=== PATIENT | male | born 1955 | race Caucasian/White ===

== ENCOUNTER → 2023-10-18 20:13 | Outpatient (CLI) | payer MEDICARE, OTHER, SELFPAY ==
--- OUTSIDE RECORDS SUMMARY | 2023-10-18 20:17 | XMS_ITS | Clinical Summary ---
Author Name Unknown Address [address] [place] [address] [place] [address] Phone Organization [facility] , [facility] Address [address] [place] [address] Phone Care Team Providers Care Silver Service Waiter Name Role Phone TWYLA THORNTON, FABRICIO Castro Unavailable [phone] Marquis THORNTON, Sotero Aden Unavailable Unavail able Reason for Visit and Chief Complaint BRACE FITTING Problems Includes: Problems addressed during this encounter and other active Problems All Visits Onset Date Resolved Date Provider Condition S tatus Pain in the Left Hand Only 03/21/2022 Maribell Schwartz APRN Active Plan of Treatment Future Appointments Date Time Location Provi luis NEW PROBLEM/EST PT 10/25/2023 10:15AM [facility] Jose Benavidez MD Assessments Includes: Assessments from this encounter No Assessments Recorded Medical Equipment - Implanted Devices Includes: Current Devices No Medical Equipment Recorded Medications Includes: Medications discussed during this encounter and other current Medications Current Medications (continue as prescribed) amLODIPine Benzoate 1 MG/ML Oral Suspension 05/02/2022 Provider: Diagnosis:
--- OUTSIDE RECORDS SUMMARY | 2023-10-18 20:17 | XMS_ITS | Clinical Summary ---
Author Name Unknown Address [address] [place] [address] [place] [address] Phone Organization [facility] , [facility] Address [address] [place] [address] Phone Care Team Providers Care Dispatcher Radio Name Role Phone TWYLA THORNTON, FABRICIO Castro Unavailable [phone] Marquis THORNTON, Sotero Aden Unavailable [phone] Reason for Visit and Chief Complaint The Chief Complaint is: left hand pain Problems Includes: Problems addressed during this encounter and other active Problems All Visits Onset Date Resolved Date Provider Condition S tatus Pain in the Left Hand Only 03/21/2022 Maribell Schwartz APRN Active Plan of Treatment Fall Risk Assessment: This patient has been identified as a fall risk. Balance/gait along with postural blood pressure, vision and home fall hazards have been assessed. Medications have been reviewed, and recommendations made with regard to contributing factors for future falls. Plan of care: Consideration of vitamin D supplementation along with balance and strength training with consideration for formal physical therapy has been discussed with the patient. - Last Documented On 11/30/2022 6:51PM ; [facility] Future Appointments Date Time Location Provi luis NEW PROBLEM/EST PT 10/25/2023 10:15AM [facility] Jose Benavidez MD Instructions to patient
--- OUTSIDE RECORDS SUMMARY | 2023-10-18 20:17 | XMS_ITS | Clinical Summary ---
Author Name Unknown Address [address] [place] [address] [place] [address] Phone Organization [facility] , [facility] Address [address] [place] [address] Phone Care Team Providers Care Blood Collector Name Role Phone TWYLA THORNTON, FABRICIO Castro Unavailable [phone] Marquis THORNTON, Sotero Aden Unavailable [phone] Reason for Visit and Chief Complaint The [...] with the patient. - Last Documented On 10/25/2022 1:12PM ; [facility], [facility] Future Appointments Date Time Location Provi luis NEW PROBLEM/EST PT 10/25/2023 10:15AM [facility] Jose Benavidez MD Instructions to patient
--- OUTSIDE RECORDS SUMMARY | 2023-10-18 20:17 | XMS_ITS ---
Author Name Unknown Address [address] [place] [address] [place] [address] Phone Organization [facility] , [facility] Address [address] [address] Phone Care Team Providers Care Windows Application Packager Name Role Phone TWYLA THORNTON, FABRICIO Castro Unavailable [phone] Marquis THORNTON, Sotero Aden Unavailable [phone] Reason for Referral Date Encounter Description Provider Reason for Referral 06/08/22 Follow Up Maribell Schwartz APRN Referr al To Physician; Referral To Physician 05/02/22 Follow Up Maribell Schwartz APRN Referr al To Physician 03/21/22 Physician Specified Maribell Schwartz APRN Referral To Physician Problems Includes: Active, inactive, and resolved Problems All Visits Onset Date Resolved Date Provider Condition S tatus Pain in the Left Hand Only 03/21/2022 Maribell Schwartz APRN Active Plan of Treatment Pending Tests Order Diagnosis Results Due Ordering Omid mckenna Radiology - MRI MRI Shoulder 09/05/19 Sotero Cho MD Future Appointments Date Time Location Provi luis NEW PROBLEM/EST PT 10/25/2023 10:15AM [facility] Jose Benavidez MD Instructions to patient
--- OUTSIDE RECORDS SUMMARY | 2023-10-18 20:17 | XMS_ITS | Clinical Summary ---
Author Name Unknown Address [address] [place] [address] Phone Organization [facility] , [facility] Address [address] [place] [address] Phone Care Team Providers Care Side Seam Tender Name Role Phone TWYLA THORNTON, FABRICIO Castro Unavailable [phone] Marquis THORNTON, Sotero Aden Unavailable [phone] Reason for Visit and Chief Complaint The [...] with the patient. - Last Documented On 01/17/2023 2:41PM ; [facility] Future Appointments Date Time Location Provi luis NEW PROBLEM/EST PT 10/25/2023 10:15AM [facility] Jose Benavidez MD Instructions to patient
--- OUTSIDE RECORDS SUMMARY | 2023-10-18 20:17 | XMS_ITS | Continuity of Care Document ---
Author Name Unknown Address [address] [place], [place] [id number] Organization [facility] Phone Care Team Providers Care Management Associate Name Role Phone FABRICIO WAKEFIELD Unavailable FABRICIO WAKEFIELD Primary Care FABRICIO WAKEFIELD Admitting FABRICIO WAKEFIELD Primary Attending [phone] ALLERGIES AND ADVERSE REACTIONS ALLERGIES AND ADVERSE REACTIONS Code System Allergy Substance Adverse Reaction Date Reaction (Severity) Comment Status Reported By Updated By No Known Allergies FAMILY HISTORY RELATION: Father Status: Cause of : Unknown Age at : Unknown SNOMED-CT Diagnosis Age At Onset [id number] Malignant neoplastic disease RELATION: Mother Status: Cause of : Unknown Age at : Unknown SNOMED-CT Diagnosis Age At Onset [id number] Diabetes mellitus RESULTS Patient: ESVIN Gates Date of : [birth year] LABORATORY RESULTS Information is not available LABORATORY NARRATIVE RESULTS Information is not available RADIOLOGY RESULTS ORDER 100: CT CHEST LOW DOSE (LOINC: 55744-3) ORDER DATE: August 03, 2023 11:51:00 AM [facility]
--- OUTSIDE RECORDS SUMMARY | 2023-10-18 20:17 | XMS_ITS | Clinical Summary ---
Author Name Unknown Address [address] [place] [address] [place] [address] Phone Organization [facility] , [facility] Address [address] [place] [address] Phone Care Team Providers Care News Producer Name Role Phone TWYLA THORNTON, FABRICIO Castro Unavailable [phone] Marquis THORNTON, Sotero Aden Unavailable [phone] Reason for Visit and Chief Complaint The [...] with the patient. - Last Documented On 04/18/2023 3:35PM ; [facility], [facility] Future Appointments Date Time Location Provi luis NEW PROBLEM/EST PT 10/25/2023 10:15AM [facility] Jose Benavidez MD Instructions to patient
--- OUTSIDE RECORDS SUMMARY | 2023-10-18 20:17 | XMS_ITS ---
Care Plan - [facility], [facility] Created on: October 18, 2023 Celso Edwards : 1955 Sex: Male Author Name Unknown Address [address] [place] [address] Phone Organization [facility] , [facility] Address [address] [place] [address] Phone Care Team Providers Care Printing Assistant Name Role Phone TWYLA THORNTON, FABRICIO Castro Unavailable [phone] Marquis THORNTON, Sotero Aden Unavailable [phone]
--- OUTSIDE RECORDS SUMMARY | 2023-10-18 20:17 | XMS_ITS | Continuity of Care Document ---
Author Name Unknown Address [address] [place], [place] [id number] Organization [facility] Phone Care Team Providers Care Cooking Instructor Name Role Phone FABRICIO WAKEFIELD Unavailable FABRICIO WAKEFIELD Primary Care FABRICIO WAKEFIELD Admitting FABRICIO WAKEFIELD Primary Attending [phone] ALLERGIES AND ADVERSE REACTIONS ALLERGIES AND ADVERSE REACTIONS Code System Allergy Substance Adverse Reaction Date Reaction (Severity) Comment Status Reported By Updated By No Known Allergies FAMILY HISTORY RELATION: Father Status: Cause of : Unknown Age at : Unknown SNOMED-CT Diagnosis Age At Onset [id number] Malignant neoplastic disease RELATION: Mother Status: Cause of : Unknown Age at : Unknown SNOMED-CT Diagnosis Age At Onset [id number] Diabetes mellitus RESULTS Patient: ESVIN Gates Date of : [birth year] LABORATORY RESULTS Information is not available LABORATORY NARRATIVE RESULTS Information is not available RADIOLOGY RESULTS ORDER 100: CT CHEST LOW DOSE (LOINC: [id number]) ORDER DATE: August 03, 2023 11:51:00 AM [facility]
== END ==
PROVIDERS: PCP Nurse Practitioner Family; Visit Provider Nurse Practitioner Family
DX: B35.1 Tinea unguium (principal); M79.675 Pain in left toe(s)
CPT/HCPCS: 87102; 87206; 87220